=== PATIENT | female | born 1980 ===

== ENCOUNTER 2021-09-03 08:05 | Outpatient (REF) | payer OTHER, SELFPAY ==
--- NOTE | ~2021-09-03 | XR_ITS ---
EXAMINATION: AP BILATERAL KNEE STANDING. RIGHT KNEE CLINICAL INFORMATION: Pain right knee COMPARISON: None TECHNIQUE: AP bilateral knee standing 1 view. Right knee 2 views. FINDINGS: AP bilateral knee: There is reduction in medial and lateral compartment joint space both knees without fracture, bony erosive changes or loose bodies. The soft tissues are normal. There is a metallic plate and screws along the distal medial cortex right femur stabilizing old healed fracture. Right knee: Lateral and sunrise views reveal a no visible fracture or dislocation. No loose bodies. Mild right lateral patella spurring. XR/XR knee standing BI IMPRESSION: No visible acute fracture or dislocationright knee. There is old healed distal femoral fracture stabilized with medial patellar Shape plate and screws. Minimal loss of medial and lateral compartment joint space both knees on AP standing Likely early degenerative changes.
--- NOTE | ~2021-09-03 | XR_ITS ---
EXAMINATION: AP BILATERAL KNEE STANDING. RIGHT KNEE CLINICAL INFORMATION: Pain right knee COMPARISON: None TECHNIQUE: AP bilateral knee standing 1 view. Right knee 2 views. FINDINGS: AP bilateral knee: There is reduction in medial and lateral compartment joint space both knees without fracture, bony erosive changes or loose bodies. The soft tissues are normal. There is a metallic plate and screws along the distal medial cortex right femur stabilizing old healed fracture. Right knee: Lateral and sunrise views reveal a no visible fracture or dislocation. No loose bodies. Mild right lateral patella spurring. XR/XR knee RT 2V IMPRESSION: No visible acute fracture or dislocationright knee. There is old healed distal femoral fracture stabilized with medial patellar Shape plate and screws. Minimal loss of medial and lateral compartment joint space both knees on AP standing Likely early degenerative changes.
== END 2021-09-03 08:06 | disposition home or self-care (01) ==
LOC: HO.HOSX 08:05
PROVIDERS: Visit Provider Physician Assistant
DX: M25.561 Pain in right knee (principal); M25.562 Pain in left knee; M21.061 Valgus deformity, not elsewhere classified, right knee
CPT/HCPCS: 73560; 73565; 99202

== ENCOUNTER 2022-02-24 14:12 | Outpatient (REF) | payer OTHER, SELFPAY ==
--- NOTE | ~2022-02-24 | XR_ITS ---
EXAMINATION: XR KNEE, RIGHT XR KNEE AP STANDING CLINICAL INFORMATION: Pain. COMPARISON: Prior radiographs, most recently 09/07/2021. TECHNIQUE: Lateral and axial views of the right knee are submitted. AP bilateral standing view of the knees was obtained. FINDINGS: A healed fracture with bony remodeling is seen of the distal shaft of the right femur. There is intact orthopedic hardware applied to the distal right femur, without failure or loosening noted. The bilateral lateral and medial joint space compartment are well-maintained. The right patellofemoral compartment is well-maintained. No fracture or dislocation is seen. No significant varus or valgus configuration is seen bilaterally. XR/XR knee standing BI IMPRESSION: 1. A healed fracture is seen of the distal right femoral shaft, with bony remodeling. No hardware failure loosening is seen. 2. No unusual degenerative change is seen of the knees. No significant varus or valgus configuration is seen bilaterally.
--- NOTE | ~2022-02-24 | XR_ITS ---
EXAMINATION: XR KNEE, RIGHT XR KNEE AP STANDING CLINICAL INFORMATION: Pain. COMPARISON: Prior radiographs, most recently 09/07/2021. TECHNIQUE: Lateral and axial views of the right knee are submitted. AP bilateral standing view of the knees was obtained. FINDINGS: A healed fracture with bony remodeling is seen of the distal shaft of the right femur. There is intact orthopedic hardware applied to the distal right femur, without failure or loosening noted. The bilateral lateral and medial joint space compartment are well-maintained. The right patellofemoral compartment is well-maintained. No fracture or dislocation is seen. No significant varus or valgus configuration is seen bilaterally. XR/XR knee RT 2V IMPRESSION: 1. A healed fracture is seen of the distal right femoral shaft, with bony remodeling. No hardware failure loosening is seen. 2. No unusual degenerative change is seen of the knees. No significant varus or valgus configuration is seen bilaterally.
== END 2022-02-24 14:13 | disposition home or self-care (01) ==
LOC: HO.HOSX 14:12
PROVIDERS: Visit Provider Orthopaedic Surgery
DX: M21.061 Valgus deformity, not elsewhere classified, right knee (principal); M54.16 Radiculopathy, lumbar region
CPT/HCPCS: 73560; 73565; 99212

== ENCOUNTER 2022-09-01 11:00 | Outpatient (REF) | payer OTHER, SELFPAY | END 2022-09-01 11:01 | disposition home or self-care (01) | LOC: HO.HOSX 11:00 | PROVIDERS: Visit Provider Orthopaedic Surgery | DX: Z13.89 Encounter for screening for other disorder (principal) ==

== ENCOUNTER 2024-01-04 11:30 | Outpatient (REF) | payer OTHER, SELFPAY | END 2024-01-04 11:31 | disposition home or self-care (01) | LOC: HO.HOSX 11:30 | PROVIDERS: Visit Provider Orthopaedic Surgery | DX: M25.569 Pain in unspecified knee (principal); M25.561 Pain in right knee; M21.061 Valgus deformity, not elsewhere classified, right knee; G89.29 Other chronic pain; Z98.890 Other specified postprocedural states; Z79.891 Long term (current) use of opiate analgesic | CPT/HCPCS: 73560; 73562; 99212 ==

== ENCOUNTER 2024-01-04 14:04 | Outpatient (AMB) | payer OTHER, SELFPAY ==
--- NOTE | 2024-01-04 14:24 | A.OFFVIS_ITS ---
Intake Visit Reasons: OV - Right Knee Valgus Deformity Intake Note: Sharon is a 42 year old female who presents today for a follow up of her valgus deformity of her right knee. She has a Hx of a right varus osteotomy of the distal femur, DOS: 12/24/14. At her last visit in February she was referred to [facility] for concerns of lower back pain. Patient report she stopped going to [facility] due to them wanting to do injections and surgery. She expresses she is having constant daily pain in the right knee that has not resolved. On rainy days her knee pain exacerbates. She has tried cortisone injections in the past for her right knee however she says these never gave her relief. Patient reports she has no improvement in her symptoms since her last office visit. Allergies latex [LATEX] Allergy (Intermediate, Unverified 01/04/24 14:25) RASH,ITCHING morphine [MORPHINE] Allergy (Intermediate, Unverified 01/04/24 14:25) IV DOSE MADE ARM RED & SWELL ?INFILTRATE? HPI HPI OV - Right Knee Valgus Deformity: Details: Sharon is a 42 year old female who presents today for a follow up of her valgus deformity of her right knee. She has a Hx of a right varus osteotomy of the d istal femur, DOS: 12/24/14. At her last visit in February she was referred to [facility] for concerns of lower back pain. Patient report she stopped going to [facility] due to them wanting to do injections and surgery. She expresses she is having constant daily pain in the right knee that has not resolved. On rainy days her knee pain exacerbates. She has tried cortisone injections in the past for her right knee however she says these never gave her relief. Patient reports she has no improvement in her symptoms since her last office visit. [facility] Medical History (Updated 02/24/22 @ 14:52 by Donald Forrest) Migraine Asthma Surgical History (Updated 09/03/21 @ 14:01 by Sarah Escamilla Noelle) Hx of cholecystectomy Social History Patient Tobacco Use Status: Current everyday Tobacco user Current occupational status: unemployed Current occupation: rt hand Physical Exam Extrem Other: Tenderness to palpation over the hardware of the distal medial thigh. This is mild. There is no knee tenderness to palpation. Results Reviewed Results Reviewed: I personally reviewed relevant radiographs. Unchanged appearance right distal femoral osteotomy with hardware in unchanged position with no hardware complications. Assessment & Plan Assessment & Plan (1) Acquired genu valgum of right knee: Code(s): M21.061 - Valgus deformity, not elsewhere classified, right knee Category: Medical Plan: Status post right knee osteotomy nearly 10 years ago. She has chronic intermittent pain over the hardware. Options include hardware removal versus continued medical pain management. She has been very reliable with her medical pain management and takes extremely small doses so I will continue in that route but she is not interested in hardware removal. Hardware removal would be difficult as well. Orders: Orders XR knee LT 1V 01/04/24 M25.569 - Pain in unspecified knee XR knee RT 3V 01/04/24 M25.561 - Pain in right knee Medications: Refilled oxycodone Partial Fill upon patient request. 5 mg PO DAILY PRN 30 tabs 0RF pain 30 days M21.061 - Valgus deformity, not elsewhere classified, right knee Coding Level of Care Code Est Pt Level 3 (80701) Diagnoses Acquired genu valgum of right knee M21.061
== END 2024-01-04 14:45 | disposition home or self-care (01) ==
PROVIDERS: PCP Internal Medicine; Visit Provider Orthopaedic Surgery
DX: M21.061 Valgus deformity, not elsewhere classified, right knee (principal)
CPT/HCPCS: 99213